=== PATIENT | female | born 1950 | race Caucasian/White ===

== ENCOUNTER 2017-11-19 06:50 | Emergency (ER) | payer OTHER ==
[~2017-11-19] VITALS: Ht 160 cm; Wt 109.6 kg
[~2017-11-19 06:50] MED LIST: ALBUTEROL SULFATE IH; ALLOPURINOL300 MG PO; ASPIRIN E.C.81 M1 PO; ATARAX,VISTARIL25 M1 PO; AUGMENTIN875 MG PO; CENTRUM TABLET1 EACH PO; FLONASE16 G1 BOTH NARES; FLOVENT DISKUS1 DIS2 IH; FLUTICASONE PROPIONA IH; HYDROCHLOROTHIA25 MG PO; IRON PO; JANUVIA25 M1 PO; LISINOPRIL20 MG PO; MULTIVITAMIN1 EAC2 PO; NASONEX17 GM BOTH NARES; OMEPRAZOLE20 MG PO; PRILOSEC PO; PRINIVIL20 MG PO; PROAIR HFA8.5 GM IH; PROBIOTIC1 EAC1 PO; PULMICORT FLE180 MCG IH; Proventil,Ventolin H IH; Pulmicort 180 microg IH; VITAMIN B12-FO1 EACH PO; VITAMIN D2000 UNIT PO; [UNRECOGNIZED DRUG - CODE]; oxyCODONE PO
[2017-11-19 07:37] LABS: HEMATOCRIT 36.1 % (36.0-46.0); HEMOGLOBIN 11.6 G/DL (11.9-15.5); MCH 27.4 PG (29.0-34.0); MCHC 32.1 G/DL (30.0-36.0); MCV 85.1 FL (83-99); PLATELET COUNT 260 K/uL (156-360); RBC DIS.WIDTH-CV 15.1 % (11.8-14.6); RBC DIS.WIDTH-SD 46.5 % (39-53); RED BLOOD COUNT 4.24 M/uL (3.80-5.20); WHITE BLOOD COUNT 11.3 K/uL (4.1-10.2)
[2017-11-19 08:03] LABS: CHLORIDE 104 MEQ/L (99-109); CREATININE 0.9 MG/DL (0.6-1.3); GFR ESTIMATE (CALCULATED) > 59 mL/min/; GLUCOSE 249 mg/dL (70-99); POTASSIUM 3.9 MEQ/L (3.7-5.4); SODIUM 137 MEQ/L (136-147); UREA NITROGEN (BUN) 23 mg/dL (9-23)
[2017-11-19] MEDS ORDERED: TESSALON200 MG PO (08:31)
[2017-11-19] MEDS ORDERED: ZITHROMAX Z-PA250 MG PO (08:31)
[2017-11-19 09:12] VITALS: BP 148/66
== END 2017-11-19 09:16 | disposition home or self-care (01) ==
LOC: EME 06:50
DX: J40 Bronchitis, not specified as acute or chronic (principal); I10 Essential (primary) hypertension; K21.9 Gastro-esophageal reflux disease without esophagitis
CPT/HCPCS: 71046; 80048; 85027; 94640; 99281; 99284